=== PATIENT | male | born 1985 | race Caucasian/White ===

== ENCOUNTER 2022-05-31 19:46 | Emergency (ER) | payer BC, MEDICAID ==
[~2022-05-31] VITALS: Ht 172.7 cm; Wt 122.1 kg
[2022-05-31 22:27] VITALS: BP 114/78
== END 2022-05-31 22:20 | disposition home or self-care (01) ==
LOC: ER 19:46
DX: Z00.00 Encounter for general adult medical examination without abnormal findings (principal); J45.909 Unspecified asthma, uncomplicated; E11.9 Type 2 diabetes mellitus without complications; G35 Multiple sclerosis; Z88.0 Allergy status to penicillin; Z98.890 Other specified postprocedural states
CPT/HCPCS: 99281